=== PATIENT | female | born 1960 | race African-American/Black ===

== ENCOUNTER → 2016-10-27 | Day surgery (SDC) | payer MEDICAID ==
[~2016-10-27] VITALS: Ht 160 cm; Wt 105.7 kg
[~2016-10-27] MED LIST: ALEN70SO PO; ALPR0.254 PO; AML5T PO; ANGIOMAX 250 MG VIAL IV ONE; ASPI81CH43 PO; ATOR20TA50 PO; BENA20TA14 PO; CITA20TA3 PO; HYDROcodone-ACET 5/325MG TAB PO ONE; IOHEXOL 350 MG/ML 100ML IJ ONE; LABE200T18 PO; LABETALOL HCL 5 MG/ML 4ML SYRINGE IV ONE; LIDOCAINE 2%HCL (LOCAL ANESTH.) INJ 20ML MDV ONE; METO-169 PO; MIDAZOLAM HCL 1MG/1ML-2 ML VIAL ONE; NAP500T PO; NITR0.4S29 SL; OMEP20TA44 PO; PAR20T PO; SODIUM CHL 0.9% 0 ML ONE; SODIUM CHLORIDE 0.9% 1,000 ML IV SCH; TRAM50TA2 PO; [UNRECOGNIZED DRUG - CODE] OR; fentaNYL CITRATE 100 MCG/2 ML VL ONE; hydrALAZINE HCL 20 MG/ML VL IV ONE
== END | disposition home or self-care (01) ==
LOC: CATH 06:03
PROVIDERS: ATTEND Internal Medicine Cardiovascular Disease
DX: I51.9 Heart disease, unspecified (principal); G47.30 Sleep apnea, unspecified; F41.9 Anxiety disorder, unspecified; F32.9 Major depressive disorder, single episode, unspecified; Z90.710 Acquired absence of both cervix and uterus
CPT/HCPCS: 93458; C1760; C1894; J1644; J3010; J7030; Q9967; 99152; J2250